=== PATIENT | male | born 1990 | race Two or more races ===

== ENCOUNTER → 2022-01-16 | Outpatient (CLI) | payer OTHER ==
--- NOTE | 2022-01-16 09:29 | RAD ---
EXAM: Abdomen sonogram. HISTORY: Hernia assessment. TECHNIQUE: Sonographic imaging of the right lower quadrant at the site of reported palpable concern w as performed. COMPARISON: None. FINDINGS: No hernia is seen within the right lower quadrant at the site of reported pain. There is no mass or fluid collection. IMPRESSION: No suspicious finding within the right lower quadrant at the site of palpable concern. Electronically signed by: Shea Jacob MD (01/16/2022 9:26 AM) [id number]
== END ==
LOC: US 08:45
PROVIDERS: ATTEND Physician Assistant
DX: K40.90 Unilateral inguinal hernia, without obstruction or gangrene, not specified as recurrent (principal)
CPT/HCPCS: 76705